=== PATIENT | female | born 1945 | race Caucasian/White ===

== ENCOUNTER 2016-12-22 15:07 | Emergency (ER) | payer MEDICARE, MEDICAID ==
[~2016-12-22] VITALS: Ht 152.4 cm; Wt 52.2 kg
[~2016-12-22 15:07] MED LIST: ADVAIR 250/5028 PUFF IN; BIAXIN500 MG PO; BROMFED DM 480480 ML PO; CEFTIN500 MG PO; CIPRO 500MG TA500 MG PO; COMBIVENT INH14.7 GM IN; HYDROCHLOROTHIA25 M1 PO; IPRATROPIUM BROM3 M1 IH; LISINOPRIL 10MG10 MG PO; LOPRESSOR 50 MG50 MG PO; LORTAB 480 ML480 ML PO; MEDROL 4MG. DOSE4 MG PO; PREDNISONE 10MG10 MG PO; PREDNISONE 20MG20 MG PO; PRILOSEC20 M1 PO; REGLAN 10 MG TA10 MG PO; SIMVASTATIN20 MG PO; TRAZADONE HYDR100 MG PO
[2016-12-22] MEDS ORDERED: LEVAQUIN500 MG PO (15:43)
[2016-12-22] MEDS ORDERED: MEDROL 4MG. DOSE4 MG PO (15:43)
--- NOTE | 2016-12-22 15:44 | Emergency Room Report ---
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 N Clinical Suspician of Infection? N Mental Status: 1 - Regular (Normal Baseline) Sepsis Risk:Low Sepsis Risk Have you (or family members/close friends) recently traveled outside the [place]? N If Yes, where/when: Have you had exposure to infectious disease within the past month? TB? Other? Specify: Source patient, RN notes reviewed, family, RN/MD Exam Limitations no limitations Comment This is a 71 years old lady presenting to the ER with nonproductive coufh and congestion for the past 2-3 days, denies any recent travel or exposure to sick contacts, denies any chest pain or fever. ALLERGIES Uncoded Allergies: PCN (Mild, 12/22/16) Home Medications Active Scripts Cefuroxime Axetil (Ceftin 500MG) 500 MG PO BID #20 TAB Prov: 09/11/14 Methylprednisolone (Medrol Dose Dc) 4 MG PO UD #1 DC Prov: 09/11/14 Reported Medications HYDROCHLOROTHIAZIDE (Hydrochlorothiazide) 25 MG PO DAILY Albuterol-Ipratropium (Combivent Inhaler) 2 PUFFS IN PRN ALBUTEROL-IPRATROPIUM (Iprat-Albut 0.5-3(2.5) MG/3 Ml) 3 ML IH PRN LISINOPRIL (Lisinopril) 10 MG PO DAILY History Medical History General Angina: No [place]: No Hypertension? Yes Hyperlipidemia? Yes CHF? No COPD? Yes Asthma? No Hernia? Yes CVA? No Seizures? No Diabetes? No UTI? Yes Stones? Yes GB Disease: No Nephritic Syndrome? No Asplenia? No Hepatitis? No Cataracts? Yes Glaucoma? No MRSA? No TB? No Cancer? No Immunization Hx Ped.Immunizations UTD Yes DT/Tetanus Unknown Flu 09/11/14 Pneumonia 09/11/14 Surgical Hx Previous Surgery?Y VOCAL CORDS Family History Family Hx Diabetes Yes CAD No Hypertension Yes Hyperlipidemia No Cancer No TB No Social History Smoking Hx Smoker: Former Smoker Tobacco: Yes Type Cigarettes Packs/day < 1 Pack Alcohol Alcohol: No Review of Systems All Other Systems Reviewed and Negative Respiratory cough, shortness of breath, wheezing Physical Exam Vital Signs Vital Signs Date Time Temp Pulse Resp B/P Pulse O2 O2 Flow FiO2 Ox Delivery Rate 12/22 1632 98.3 101 18 102/52 92 12/22 1518 98.3 101 18 94/60 89 General Appearance normal appearance, WD/WN, mild distress Respiratory Status Yes: trachea midline, chest symmetrical, non tender chest. No: respiratory distress. Lung Sounds bilateral: normal breath sounds, lungs clear. 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 No Comment 15:20-on re-evalaution the patient appears medically stable, clcinically improving, advised her of the results obtained, need to follow up with PCP if not better in 2-3 days. Results/Orders Orders Procedure Date/time Status RT REQUEST DUKODAKB 12/22 1524 Active Departure Departure Time of Disposition 1540 Disposition DC Home or Self Care(routine) Clinical Impression Primary Impression: Chronic obstructive pulmonary disease with (acute) exacerbation Secondary Impressions: Acute exacerbation of chronic bronchitis Condition STABLE Referrals Peter SALAZAR,Sonya Iverson (Family): 2 Days-Call Office If not better Patient Instructions DI for Acute Bronchitis, DI for Chronic Obstructive Pulmonary Disease Additional Instructions Please take the medication prescribed as directed, follow-up with Dr. Green if not better within 2 days. Please use your oxygen supply 24/7. Discharge Counseling Counseled pt/family regarding diagnosis, medications/RX, home care, follow up needs Comment Please take the medication prescribed as directed, follow-up with Dr. Green if not better within 2 days. Please use your oxygen supply 24/7. Prescriptions Current Visit Scripts Levofloxacin (Levaquin 500MG) 500 MG PO DAILY #7 TAB Methylprednisolone (Medrol Dose Dc) 4 MG PO UD #1 DC TAKE DIRECTED ON PACKAGING ED Critical Care Critical Care No at 1140
[2016-12-22 16:32] VITALS: BP 102/52
--- NOTE | 2016-12-22 20:37 | RADIOLOGY REPORT PS360 ---
CHEST(2 VIEWS-NOT PORTABLE) ORDERING PHYSICIAN : Goran Jhaveri MD PATIENT AGE: 71 years GENDER: Female INDICATION: SOA, COUGH X 1 WEEK TECHNIQUE: PA and lateral chest COMPARISON: September 2014 CXR and. December 2012 FINDINGS Minimal patchy infiltrate at the right lung base superimposed upon chronic changes. Upper normal markings at the medial left base-more likely chronic in nature but difficult to exclude minimal infiltrate at the medial left base as well. Upper lung vanessa appear clear. Heart normal size. Shira stable Structures unremarkable. Small hiatal hernia. Emphysematous changes with Chronic interstitial fibrotic changes bilaterally again noted. Suggestion a subtle 14 mm mm length nodular density projected just above the right right anterior second rib end. Subtle change since prior study & warrants follow-up as does the basilar infiltrate-. Suggest including apical lordotic view on follow-up chest film in addition to PA and lateral.. This patient appears to be a smoker & may benefit from screening chest CT protocol as well. Old left seventh rib fracture is stable since 2013 note: This study was dictated with a voice-recognition system. There may be typographical error is related to such. If they are significant please notify us for corrections IMPRESSION: Minimal patchy right right basilar pneumonia superimposed on chronic changes. Question subtle Small 14 mm nodular density projected just superior to second rib end. Warrant follow-up PA & lateral chest 4 both these above features, suggest including apical lordotic view. If the density persists and CT of the warranted Underlying COPD, with chronic interstitial changes bilaterally
== END 2016-12-22 16:33 | disposition home or self-care (01) ==
LOC: ER 15:07 → EDBD 15:56 → ER 15:56
DX: J44.1 Chronic obstructive pulmonary disease with (acute) exacerbation (principal); J42 Unspecified chronic bronchitis; Z87.891 Personal history of nicotine dependence; I10 Essential (primary) hypertension

== ENCOUNTER 2017-02-10 16:49 | Observation (INO) | payer MEDICARE, MEDICAID ==
[~2017-02-10] VITALS: Ht 152.4 cm; Wt 50.8 kg
[~2017-02-10 16:49] MED LIST changes: +LEVAQUIN500 MG PO
[2017-02-10] MEDS ORDERED: PRILOSEC20 M1 PO (17:31)
[2017-02-10 17:34] VITALS: BP 135/78
[2017-02-10] MEDS ORDERED: SIMVASTATIN20 MG PO (17:35)
[2017-02-10] MEDS ORDERED: LORATADINE 10MG10 M1 PO (17:36)
[2017-02-10] MEDS ORDERED: SPIRIVA18 MCG IH (17:36)
[2017-02-10] MEDS ORDERED: METOCLOPRAMIDE10 M2 PO (17:37)
[2017-02-10] MEDS ORDERED: PROAIR HFA0.09 MG/AC IH (17:37)
[2017-02-10] MEDS ORDERED: BENTYL10 M1 PO (17:38)
[2017-02-10] MEDS ORDERED: BREO ELLIPTA1 POW IH (17:38)
[2017-02-10] MEDS ORDERED: IPRATROPIUM BROM3 M1 IH (17:40)
[2017-02-10] MEDS ORDERED: OXYGEN2 IH (17:41)
[2017-02-10 17:45] VITALS: BP 135/78
--- NOTE | 2017-02-10 17:52 | HISTORY AND PHYSICAL REPORT ---
History and Physical ([facility]) Date of admission: 02/10/17 Chief complaint: cough and SOB History: History of Present Illness: Ms Brennan is a 71 year old female with a history of tobacco usage, HTN, and COPD who presented to the office of [facility] on 02/10/17 stating that she has been SOB for the past 2 days. The cough and breathing difficulties began after going to a child's birthday alliance party 02/08/17 and has progressively worsened. She has been wearing her O2 at 3 LPM continuously with O2 sats at 90-92% and also using her neb machine. She describes being hot and then chilling. Cough is productive at time of green sputum. She has not been eating but states she has been drinking water and coffee. Her stomach hurts. She denies CP. Past Medical History: Medical History: Angina: No [place]: No Hypertension? Yes Hyperlipidemia? Yes CHF? No PE? No COPD? Yes Asthma? No GERD? Yes GI Bleed? No Hernia? Yes Thyroid Problems? No CVA? No Seizures? No Diabetes? No UTI? Yes Stones? Yes GB Disease: No Nephritic Syndrome? No Asplenia? No Hepatitis? No Cataracts? Yes Glaucoma? No MRSA? No TB? No Cancer? No More? Yes Additional hx: tobacco addiction Surgical history: Previous Surgery?Y VOCAL CORDS Allergies: Uncoded Allergies: PCN (Mild, 12/22/16) Family History: Family history: Postive for: CAD, HTN, stroke. Social History: Smoking Hx Tobacco: Yes Smoker: Current Every Day Smoker Type: Cigarettes Packs/day: < 1 Pack Are you exposed to second hand Yes Alcohol: Alcohol: No Hx of Drug Use: Drug Use? No Review of Systems: ENT No: ear ache, nasal congestion, sore throat. Cardiovascular No: chest pain, edema, palpitations. Respiratory Positive for: dyspnea on exertion, shortness of air, pneumonia, productive cough (sputum), wheezing. No: hemoptysis. GI Positive for: GERD, abdominal pain, diarrhea, nausea. No: constipation, hematemeis, hematochezia, vomitting. (female) No: hematuria. Neurological Positive for: dizziness, headache, vision change, weakness. No: seizure, syncope. Musculoskeletal No: extremity pain, extremity swelling, joint pain. Physical Exam: Vital signs: 1ST Vital Signs Result Date Time Pulse Ox 88 02/10 1734 O2 Delivery OXYGEN 02/10 1734 vital signs in the office of A: Wt 112.6; Temp 98.1: BP 110/62; HR 112; O2sat 81% on RA Exam: General appearance: alert, thin, dyspneic Eyes: anicteric, pupils reactive to light ENT: pharynx normal, tympanic membranes normal, moist tongue Neck: no carotid bruit, lymphadenopathy (absent), thyroid (normal) Cardiovascular: regular rate & rhythm Respiratory: bilateral coarse wheezing ABD: soft, no tenderness, bowel sounds present Extremities: no peripheral edema, no calf tenderness Neuro: alert, oriented, speech clear Lab data: Labs: Microbiology 02/10 UNK BLOOD: Anaerobic Blood Culture - ORD 02/10 UNK BLOOD: Aerobic Blood Culture - ORD 02/10 UNK BLOOD: Anaerobic Blood Culture - ORD 02/10 UNK BLOOD: Aerobic Blood Culture - ORD Diagnosis(es): 1. Chronic obstructive pulmonary disease with (acute) exacerbation 2. GERD (gastroesophageal reflux disease) 3. ACUTE RESPIRATORY DISTRESS Status: Chronic Plan: ABX, nebs, steriods, O2. home meds as ordered (Kristy Cameron APRN) Past Medical History: Medications: Discontinued Scripts Levofloxacin (Levaquin 500MG) 500 MG PO DAILY #7 TAB Prov: 12/22/16 DC: 02/10/171740 Methylprednisolone (Medrol Dose Suzette) 4 MG PO UD #1 SUZETTE Prov: 12/22/16 DC: 02/10/171740 Reported Medications OMEPRAZOLE MAGNESIUM (Prilosec 20MG) 20 MG PO DAILY Simvastatin 20 MG PO DAILY Loratadine (Claritin) 10 MG PO DAILY Tiotropium Freedom (Spiriva) 18 MCG IH DAILY Albuterol Sulfate (Proair Hfa) 1 PUFF IH QID METOCLOPRAMIDE HCL (Metoclopramide 10MG) 10 MG PO BID FLUTICASONE/VILANTEROL (Breo Ellipta 100-25 Mcg INH) 1 POW IH DAILY ALBUTEROL-IPRATROPIUM (Iprat-Albut 0.5-3(2.5) MG/3 Ml) 3 ML IH QID Device (Oxygen, Portable) 1 UNIT IH CONSTANT HYDROCHLOROTHIAZIDE (Hydrochlorothiazide) 25 MG PO DAILY ALBUTEROL-IPRATROPIUM (Iprat-Albut 0.5-3(2.5) MG/3 Ml) 3 ML IH PRN LISINOPRIL (Lisinopril) 10 MG PO DAILY Discontinued Reported Medications Albuterol-Ipratropium (Combivent Inhaler) 2 PUFFS IN PRN Diagnosis(es): 1. Chronic obstructive pulmonary disease with (acute) exacerbation 2. ACUTE RESPIRATORY DISTRESS Status: Chronic 3. Hypoxemia 4. Probable early pnuemonia Status: Chronic 5. GERD (gastroesophageal reflux disease) 6. Hypertension 7. Hyperlipidemia Plan: Pt seen and examined. Concur with above. CXR pending. (Sonya Green MD) at 1759 at [phone]
[2017-02-10 18:04] LABS: LYMPH # 1.9 K/mm3 (0.7-4.5); LYMPH % 16.9 % (10-50.0)
[2017-02-10 18:08] LABS: HEMOGLOBIN 14.3 g/dL (12.2-16.2)
[2017-02-10 20:36] VITALS: BP 104/53
--- NOTE | 2017-02-10 20:38 | RADIOLOGY REPORT PS360 ---
CHEST(2 VIEWS-NOT PORTABLE) COMPARISON: PA and lateral chest 12/22/2016 HISTORY: Suspect pneumonia TECHNIQUE: The a and lateral chest FINDINGS: Moderately severe emphysematous changes seen with hyperexpansion lung vanessa and flattening of the hemidiaphragms and increase in the retrosternal clear space. Coarse bronchovascular markings are again seen is a right base as noted on the film in December showing very little change suggesting a represent post inflammatory scarring. Minimal accentuated markings are seen in the left base as well. The upper lung vanessa are clear. Cardiac size is normal and the vascularity is normal. There is a moderate sized hiatal hernia noted. IMPRESSION: Moderate COPD probable bilateral basilar post inflammatory scarring, doubt acute pneumonia at this time
[2017-02-10 21:26] VITALS: BP 104/53
[2017-02-11] VITALS (8 sets, daily range): BP systolic 101–131; BP diastolic 52–74
--- NOTE | 2017-02-11 07:16 | PHARMACY CLINIC NOTE ---
Patient Demographics Patient Demographics Admission date: 02/10/17 Date: 02/11/17 Time: 0716 Allergies Uncoded Allergies: PCN (Mild, 12/22/16) HEIGHT- FT: 5 IN: 0.00 K.802 VTE General Information Labs: Laboratory Tests 02/10 1710 Hematology Hgb (12.2 - 16.2 g/dL) 14.3 Hct (37.0 - 47.0 %) 42.7 Plt Count (142 - 424 K/mm3) 444 H Disclaimer The following section includes nursing documentation that has been pulled in for pharmacy review. Patient's VTE score: 4 Patient's VTE Risk: LOW RISK Clinical trial participant? No VTE prophylaxis [id number] VTE prophylaxis ordered? Yes Type of prophylaxis/treatment: CARMENCITA at 0716
--- NOTE | 2017-02-11 07:45 | ACUTE CARE PROGRESS NOTE (QUA) ---
Progress Notes Subjective Date 02/11/17 Time 0732 Note coughed all night; mostly nonproductive; slept very little; cough med did not help; breathing a little better; denies CP; no abdominal pain or nausea this AM; bowels moved yesterday; has voided twice in small amounts. has been up to [facility] Objective Findings Laboratory Tests 02/10/171709: Sodium 131 L, Potassium 4.3, Chloride 92 L, Carbon Dioxide 31, BUN 20 H, Creatinine 0.9, Estimated Creat Clear 46 L, Estimated GFR (MDRD) 62, Glucose 88 , Calcium 9.5, Total Bilirubin 0.5, AST 19, ALT 19, Alkaline Phosphatase 108, Total Protein 8.8 H, Albumin 3.3 L, Globulin 5.5 H, Albumin/Globulin Ratio 0.6 L, WBC 11.2 H, RBC 5.15, Hgb 14.3, Hct 42.7, MCV 82.8, RDW 15.1, Plt Count 444 H, MPV 6.7 L, Gran % 75.7, Gran # 8.5 H, Lymphocytes % 16.9, Monocytes % 6.9, Eosinophils % 0.3, Basophils % 0.3, Lymphocytes # 1.9, Monocytes # 0.8, Eosinophils # 0.0, Basophils # 0.0, PUBS MCHC 33.5, MCH 27.8, Mycoplasma pneumon IgM NON-REACTIVE Microbiology 02/11 0030 SPUTUM: Organism ID (Sequencing 2)(SALAZAR) - ORD 02/11 0000 SPUTUM: Sputum Culture - RES 02/11 0000 SPUTUM: Gram Stain - RES 02/10 1710 BLOOD: Anaerobic Blood Culture - RECD 02/10 1710 BLOOD: Aerobic Blood Culture - RECD 02/10 1710 BLOOD: Anaerobic Blood Culture - RECD 02/10 1710 BLOOD: Aerobic Blood Culture - RECD Vital Signs Date Time Temp Pulse Resp B/P Pulse O2 O2 Flow FiO2 Ox Delivery Rate 02/11 0618 3 02/11 0615 3 02/11 0606 2 02/11 0606 87 OXYGEN 2 02/11 0437 2 02/11 0401 98.6 86 22 112/66 90 OXYGEN 02/11 0258 2 02/11 0100 2 02/11 0009 97.9 107 22 114/68 89 OXYGEN 02/10 2300 2 02/106 99.1 101 22 104/53 90 2 02/10 2100 2 02/11 2036 99.1 101 22 104/53 88 OXYGEN 02/10 1835 2 02/10 1800 2 02/10 1745 98.4 112 22 135/78 88 OXYGEN 02/10 1734 111 02/10 1734 98.4 112 22 135/78 02/10 1734 88 OXYGEN Current Medications Albuterol/Ipratropium 0 .STK-MED ONE INH (DC) Guaifenesin 0 .STK-MED ONE PO (DC) Methylprednisolone Sodium Succinate 60 MG Q8 IV (UNV) Pantoprazole Sodium 40 MG QHS IV (UNV) Azithromycin 0 .STK-MED ONE IV (DC) Ceftriaxone Sodium 0 .STK-MED ONE IV (DC) Sodium Chloride 250 ML .STK-MED ONE IV (DC) Sodium Chloride 50 ML .STK-MED ONE IV (DC) Sodium Chloride 500 ML .STK-MED ONE IV (DC) Albuterol/Ipratropium 3 ML Q6H6 INH (UNV) Acetaminophen 650 MG Q4HP PRN PO (UNV) Albuterol/Ipratropium 3 ML Q1HP PRN INH (UNV) Azithromycin 500 MG Q24H IV (UNV) Sodium Chloride 250 ML Ceftriaxone Sodium 1 GM Q24H IV (UNV) Sodium Chloride 50 ML Guaifenesin/Dextromethorphan 10 ML Q4HP PRN PO (UNV) Influenza Virus Vaccine Quadrival 0.5 ML PRN PRN IM (UNV) Methylprednisolone Sodium Succinate 125 MG ONCE ONE IV (UNV) Nicotine 21 MG DAILYP PRN TD (UNV) Sodium Chloride 1,000 ML .[id number] IV (UNV) Sodium Chloride 10 ML PRN PRN IV (UNV) 02/10 1500 02/10 2300 02/11 0700 Intake Total 120 Output Total Balance 120 Intake, Oral 120 Patient 111 lb 112 lb Weight Last VS-Temp:98.6 B/P:112/66 Pulse:86 Resp:22 SaO2:87 OXYGEN Last weight lbs:112 oz:0 K.802 Method:Bed Scales Exam General appearance: alert, active, sitting up in the bed eating breakfast; less dyspneic with talking Cardiovascular: regular rate & rhythm Respiratory: better BS with more audible expiratory wheezing and bibasilar crackles; crackles in bilateral anterior upper lobes ABD: non-distended, soft, no tenderness Extremities: no peripheral edema, no calf tenderness Neuro: alert, oriented, speech clear Assessment/Plan Problem List 1. Chronic obstructive pulmonary disease with (acute) exacerbation 2. ACUTE RESPIRATORY DISTRESS Status: Chronic 3. Hypoxemia 4. Probable early pnuemonia Status: Chronic 5. GERD (gastroesophageal reflux disease) 6. Hypertension 7. Hyperlipidemia Patient condition Guarded Plan: continue current care, add new cough med; repeat CXR and labs in AM; decrease IVF rate to 25/hour This inpt stay is expected to cross 2 MNs from start of care Yes (Kristy Cameron APRN) Subjective Date 02/11/17 Assessment/Plan Problem List 1. Chronic obstructive pulmonary disease with (acute) exacerbation 2. ACUTE RESPIRATORY DISTRESS Status: Chronic 3. Hypoxemia 4. Probable early pnuemonia Status: Chronic 5. GERD (gastroesophageal reflux disease) 6. Hypertension 7. Hyperlipidemia Plan: Pt seen and examined. Concur with above. (Sonya Green MD) at 0745 at 0844
[2017-02-11] MEDS ORDERED: SIMVASTATIN20 MG PO (15:31)
[2017-02-12 05:09] VITALS: BP 123/72
[2017-02-12 07:00] LABS: HEMOGLOBIN 12.9 g/dL (12.2-16.2); LYMPH # 1.9 K/mm3 (0.7-4.5); LYMPH % 18.1 % (10-50.0)
[2017-02-12 07:46] VITALS: BP 110/61
--- NOTE | 2017-02-12 08:18 | ACUTE CARE PROGRESS NOTE (QUA) ---
See Addendum Progress Notes Subjective Date 02/12/17 Time 0815 Note Pt states she may feel a little better today. She is still SOA and coughing. She denies any pain. She ate some of her breakfast but did not sleep well. Objective Findings Last VS-Temp:97.5 B/P:123/72 Pulse:94 Resp:20 SaO2:91 OXYGEN Last weight lbs:112 oz:0 K.802 Method:Bed Scales Laboratory Tests 02/12/17 0605: Sodium 135 L, Potassium 4.1, Chloride 97 L, Carbon Dioxide 31, BUN 15, Creatinine 0.7, Estimated Creat Clear 59, Estimated GFR (MDRD) 82, Glucose 158 H, Calcium 8.9, WBC 10.7, RBC 4.88, Hgb 12.9, Hct 40.0, MCV 82.0 L, RDW 15.0, Plt Count 448 H, MPV 6.7 L, Gran % 79.3, Gran # 8.5 H, Lymphocytes % 18.1, Monocytes % 2.3, Eosinophils % 0.2, Basophils % 0.1, Lymphocytes # 1.9, Monocytes # 0.3, Eosinophils # 0.0, Basophils # 0.0, PUBS MCHC 32.2, MCH 26.4 L Exam General appearance: alert, awake, no acute distress Cardiovascular: regular rate & rhythm Respiratory: inspiratory and expiratory wheezes bilaterally, no rales ABD: non-distended, normal bowel sounds, no rebound, soft, no tenderness, no guarding Extremities: no peripheral edema Assessment/Plan Problem List 1. Chronic obstructive pulmonary disease with (acute) exacerbation 2. ACUTE RESPIRATORY DISTRESS Status: Chronic 3. Hypoxemia 4. Probable early pnuemonia Status: Chronic 5. GERD (gastroesophageal reflux disease) 6. Hypertension 7. Hyperlipidemia Plan: Oxygen sats are improving. Will order humidity for oxygen. Will continue current treatment. This inpt stay is expected to cross 2 MNs from start of care Yes (Taylor Mojica) Subjective Date 02/12/17 Time 0832 Assessment/Plan Problem List 1. Chronic obstructive pulmonary disease with (acute) exacerbation 2. ACUTE RESPIRATORY DISTRESS Status: Chronic 3. Hypoxemia 4. Probable early pnuemonia Status: Chronic 5. GERD (gastroesophageal reflux disease) 6. Hypertension 7. Hyperlipidemia Plan: Pt seen and examined. Concur with above. Repeat CXR today. (Sonya Green MD) at 0818 at 0836
--- NOTE | 2017-02-12 08:37 | RADIOLOGY REPORT PS360 ---
CHEST(2 VIEWS-NOT PORTABLE) HISTORY: Shortness of breath, pneumonia probable pneumonia; COPD ORDERING PHYSICIAN: Sonya Green MD PATIENT AGE: 71 years COMPARISON: 02/10/2017 FINDINGS: Normal heart size. Hiatal hernia. COPD with hyperexpansion and increase AP dimension of the chest. Coarsening of the bronchovascular markings once again noted with chronic changes in both lower lobes have an a similar appearance dating back to 12/22/2016. Stable parenchymal opacity in the right upper lobe. Minimal blunting of the right CP angle unchanged. Mild kyphosis. No acute bony anomalies. IMPRESSION: COPD with chronic changes and chronic coarsening of the bronchovascular markings overall not significant changed. No definite acute infiltrate apparent
[2017-02-12 09:13] VITALS: BP 110/61
[2017-02-12 12:09] VITALS: BP 123/69
[2017-02-12] MEDS ORDERED: CEFDINIR 300MG300 MG PO (16:26)
[2017-02-12] MEDS ORDERED: Zithromax500 MG PO (16:26)
[2017-02-12] MEDS ORDERED: PREDNISONE 20MG20 MG PO (16:27)
[2017-02-12 16:56] VITALS: BP 135/78
[2017-02-12 18:45] VITALS: BP 135/78
== END 2017-02-12 18:33 | disposition home or self-care (01) ==
LOC: EDBD 16:49 → 2ND 16:49
PROVIDERS: Family Medicine
DX: J44.1 Chronic obstructive pulmonary disease with (acute) exacerbation (principal); Z72.0 Tobacco use; I10 Essential (primary) hypertension; Z99.81 Dependence on supplemental oxygen; R06.00 Dyspnea, unspecified; R09.02 Hypoxemia
CPT/HCPCS: G0378; J0456

== ENCOUNTER → 2017-09-18 | Outpatient (CLI) | payer MEDICARE, MEDICAID ==
[~2017-09-18] MED LIST changes: +BENTYL10 M1 PO; +BREO ELLIPTA1 POW IH; +CEFDINIR 300MG300 MG PO; +LORATADINE 10MG10 M1 PO; +METOCLOPRAMIDE10 M2 PO; +OXYGEN2 IH; +PROAIR HFA0.09 MG/AC IH; +SPIRIVA18 MCG IH; +Zithromax500 MG PO
--- NOTE | 2017-09-22 12:40 | RADIOLOGY REPORT PS360 ---
EXAM: CT LUNG LOW DOSE WO CONTRAST COMPARISON: Plain films of the chest February 12, 2017, December 2016, June 2010, & 2013 HISTORY: 1 pack-year for 50 years January 50 pack-years. Currently smoking. Asymptomatic. TECHNIQUE: The exam was performed on a GE Light Speed [address] scanner using 3.0 mGy CTDI. A low dose helical CT CHEST was performed on a multi-detector scanner The LDCT was performed in a facility that meets the criteria for the screening program. Data regarding this exam was submitted to [employer] which is an approved registry. The order for this exam indicates that it came as a result of a lung cancer screening counseling shard decision-making visit that included all the elements required of such a visit including smoking cessation. The radiologist interpreting this exam meets the CMS criteria for the LDCT lung cancer screening program. The exam is reported using the Lung-RADS classification scale and reported to the ACR registry. NOTE: This study was performed for the specific purposes of lung cancer screening and is not an alternative to diagnostic chest CT. RADIATION DOSE: CTDI vol(CT dose Index-volume) = 2.95 mGy DLP (Dose Length Product) = 104.1 mGy-cm FINDINGS: Benign nodules(CATEGORY 1). Too Numerous to count Tiny calcified granulomas bilaterally . These scattered throughout the periphery of vanessa bilaterally.. Most measure less than 4 mm size. There is one at the right midlung measuring up to 5 mm. These are benign features. ---- Indeterminate/Non-actionable Nodules(CATEGORY 2): . Other noncalcified tiny similar character peripheral nodular densities measuring less than 3 --4 mm size which are noncalcified bilaterally. I tend to favor these reflect early developing noncalcified small granulomas as well. For example note small noncalcified nodule seen anteriorly RUL axial image 21 measuring 3.5 mm size. The left lung tiny less than 3 mm noncalcified nodule axial image 45 just posterior to the fissure. Another measuring less than 3 mm anterior UL on axial image 48, and peripheral L UL on axial image 50. Also small ventral node/nodule. Not of concern can be followed. --------- Indeterminate /Suspicious Lung Nodules(CATEGORY 4 A ): [* 16 mm height x X 12 mm AP X over 8 mm mm transverse focal nodular density at the posterior segment of the right upper lobe. There is some linear scarring associated. In reviewing old chest films this suggest this has become evident on the more recent 2017 chest film but was not evident on older studies from 2014.. This area is indeterminate given its overall morphology morphology it could reflect postinflammatory area of scarring but cannot exclude early lesion I would note a relative stability since chest x-ray 12/22/2016 is somewhat encouraging-This warrants pulmonary consult. Requires at least close follow-up with CT study in 3 months recommended from our perspective, vs consideration of biopsy,, even though this is fairly small small,....... note A very tiny bleb is seen just anterior to this noted. As well as some adjacent scarring.. LUNG PARENCHYMA Emphysema: Moderate centrilobular emphysematous changes. Hyperexpansion.. Emphysematous changes and developing bleb formation changes most evident superior chest and particularly at the superior right upper lobe more so than left. Airways disease: Thickening of central airways particularly at the left infrahilar region more so than right. Other some clustering of airways in this left infrahilar region as well which may reflect some scarring.. There is scarring anteriorly at the right middle lobe and lingula. OTHER ANATOMIC REGIONS Lymph Nodes: No significant appearing adenopathy. Small low-density 9 mm node anterior to the aorta and up to 1 cm noted AP window. Unimpressive. No enlarged lymph nodes evident. A few small to moderate nodes are present in the mediastinum and [place]: Unremarkable Cardiac: Unremarkable coronary artery calcification most evident at left main, proximal LAD circumflex arteries.. OTHER FINDINGS: . Moderate sliding hiatal hernia noted lower chest. Nearly 6.5 cm maximum transverse diameter x nearly 4 cm. AP Upper abdomen. No additional significant findings. Adrenals normal size. IMPRESSION:-------- 1. Lung RADS Category 4 a:Indeterminate/ minimal suspicious nodule. Irregular nodule become evident on 2017 chest film and at the posterior segment RUL...Up to 16 mm height x 12 mm. Pulmonary a consult recommended for possible biopsy.If not biopsied follow-up CT chest with contrast in 3 month follow-up 2. Also note BI-RADS 3 more likely benign features- small 12 mm nodularity most likely related to scarring scarring at the medial right lung base. As well as other areas. These will warrant follow-up Linear density at the anterior RML and lingula are linear in character and most likely due to scarring. Can be followed as well. ... 3. Old granulomatous disease with numerous small calcified granulomas. ... 4. COPD/Emphysematous changes. . 5. Incidental moderate hiatal hernia measuring 6.5 cm maximally RECOMMENDATIONS: Pulmonary consult. Could biopsy is not pursued a recommend at least 3 month follow-up CT chest.
--- NOTE | 2017-09-24 09:10 | RADIOLOGY REPORT PS360 ---
DIG MAMM-SCREEN IFEOMA W/CAD ORDERING PHYSICIAN : Sonya Green MD PATIENT AGE: 72 years GENDER: Female COMPARISON: December 2012 bilateral mammogram with Spot views and ultrasound right breast December 2012 TECHNIQUE: Std CC & MLO images were obtained. R2 CAD reviewed. FINDINGS: . The breast are fairly dense bilaterally for age. With ductal prominence suggested retroareolar region similar to previous studies . RIGHT BREAST: 9 mm X nearly 10 mm ovoid nodular density lateral left breast noted. A cyst is been seen in this area previously but this density is now more pronounced on today's, MLO view. Would suggest ultrasound to further evaluate. Also ductal prominence pattern again noted bilaterally the retroareolar region is similar to previous studies I would benefit from ultrasound follow-up LEFT BREAST: Mild ductal prominence. Scattered areas of nodularity similar to previous studies however given the patient's modest size breast difficult image breast due to kyphosis along with the density on her recent CTA chest I would suggest ultrasound survey of the left breast as well when the patient returns. IMPRESSION: - Fairly dense modest volume breast bilaterally/. Breast Difficult to image due to patient's kyphosis Right breast.. 10 mm nodular density at the deep lateral right breast approximately 3 o'clock position. Likely enlarging cyst, but recommend ultrasound as well as cc, #90 degree spot views to correlate. Left breast. Although no discrete new focal area, Suggest ultrasound survey on left breast as well when patient returns in this relatively dense breasts. BI-RADS CATEGORY: 0_Incomplete: Need additional imaging. RECOMMENDED FOLLOWUP: ADD ADDITIONAL IMAGING . bilateral breast ultrasound; with Spot views right breast. (A letter has been sent to the patient regarding results of the study.)
== END ==
LOC: RAD 08:40
DX: Z12.31 Encounter for screening mammogram for malignant neoplasm of breast (principal); Z87.891 Personal history of nicotine dependence; Z12.2 Encounter for screening for malignant neoplasm of respiratory organs
CPT/HCPCS: G0202; G0297

== ENCOUNTER → 2017-10-05 | Outpatient (CLI) | payer MEDICARE ==
--- NOTE | 2017-10-08 07:46 | RADIOLOGY REPORT PS360 ---
DIG MAMM-DX UNI A/VW-RT W/CAD, US BREAST-RT COMPLETE W/AXILLA, US BREAST-LT COMPLETE W/AXILLA Ordering Physician: Sonya Green MD Patient Age: 72 years: Female HISTORY: ABNOMRAL MAMMright breast nodule COMPARISON: Screening mammogram INDICATION: Enlarging density/ nodule recent mammogram lateral right breast TECHNIQUE: CC and MLO spot views followed by bilateral breast ultrasound ======== ----DIAGNOSTIC MAMMOGRAM RIGHT breast, with spot views CC and 90 degrees spot view performed The round density is seen at the lateral right breast at 9 patient o'clock position is again seen. Ultrasound will be performed to further evaluate .======== BILATERAL BREAST ULTRASOUND with axillary survey Ultrasound imaging entire right & left breast with axillary survey included ----ULTRASOUND RIGHT BREAST including axillary survey Today's ultrasound right breast is compared to previous right breast ultrasound December 2012 . Interval enlargement of a up to 9.2 mm length debris-filled cystic area at 9:00, with slight lobulated irregular & slightly ill-defined margins.. Possible Duct either leading, to this cyst oradjacent to it.. No increased vascularity. Most likely benign feature but given given the irregular margins and moderate wall thickness would suggest ultrasound-guided cyst aspiration of this area Patient also has generous ducts throughout the anterior breast, retroareolar region again. Similar to Previous ultrasound breast study from 2012 Axillary survey today with scattered benign nodes. No areas of concern ----ULTRASOUND LEFT BREAST including axillary survey No significant findings left breast. Small 4.3 mm benign-appearing cyst behind nipple.. Generous ducts retroareolar region but not as pronounced on left as seen on right.. A few scattered benign axillary lymph nodes IMPRESSION: 9 mm Round density on mammography correlates with a 9 mm a debris-filled cyst on ultrasound Because of irregular margins of this enlarging cyst would suggest ultrasound-guided cyst aspiration,.. However Strongly favor it is merely a benign cyst, thus reasonable alternative would be merely six-month follow-up. . BI-RADS CATEGORY: 0_Incomplete: Suggest cyst aspiration, with alternative of 6 month follow-up ultrasound left breast RECOMMENDED FOLLOWUP: Cyst aspiration of the enlarging irregular cyst 9:00 right breast (A letter has been sent to the patient regarding results of the study.)
== END ==
LOC: RAD 13:08
DX: R92.8 Other abnormal and inconclusive findings on diagnostic imaging of breast (principal)
CPT/HCPCS: G0206-RT